=== PATIENT | female | born 1995 | race American Indian/Alaskan Native ===

== ENCOUNTER 2016-10-11 09:28 | Outpatient (CLI) | payer BC ==
--- NOTE | 2016-10-11 11:12 | Ultrasound Report ---
Complete abdominal ultrasound: Images of the liver, spleen, and pancreas are unremarkable. The gallbladder is normal in size and contour. There is a minimal amount of sludge. There is a question of a subcentimeter sized polyp near the neck. The CBD diameter is 1.9 mm. The right renal length is 9.6 cm as is the left and both kidneys are normal echogenically. The transverse diameter of the abdominal aorta is 1.5 cm. Impression: Questionable small gallbladder polyp. No other suspected pathology.
--- NOTE | 2016-10-11 12:55 | Fluoroscopy Report ---
UPPER GI SERIES WITH AIR CONTRAST HISTORY: Abdominal pain, epigastric pain. COMPARISON: None. FINDINGS: A remediation technician film of the abdomen is within normal limits. 38 fluoroscopic images were captured during this exam. Deglutition is normal. There is no evidence for aspiration. The esophagus is normal mucosal pattern and demonstrates normal motility. No evidence for hiatal hernia. One episode of gastroesophageal reflux to the level of clavicles was witnessed during this exam. There is moderate debris within the stomach. The patient had recently eaten. Grossly there is no evidence for gastric mass or ulceration. No abnormal dilatation. The duodenal bulb and into the duodenal sweep are normal. IMPRESSION: Gastroesophageal reflux disease. One episode of reflux to the level of the clavicles was witnessed during this exam. No other abnormality is detected.
== END 2016-10-11 09:29 | disposition home or self-care (01) ==
LOC: US 09:28
PROVIDERS: ATTEND Family Medicine Adult Medicine
DX: K21.9 Gastro-esophageal reflux disease without esophagitis (principal); R10.13 Epigastric pain
CPT/HCPCS: 74247; 76700

== ENCOUNTER 2019-05-26 21:18 | Emergency (ER) | payer BC ==
[2019-05-26 22:28] VITALS: BP 132/94
--- NOTE | 2019-05-27 01:09 | Emergency Department Report ---
- General Chief Complaint: Skin Rash Stated Complaint: RASHES, SWOLLEN FACE AND NECK Time Seen by Provider: 05/27/19 00:52 Source: patient Mode of arrival: Ambulatory Limitations: No Limitations - History of Present Illness Initial Comments: 23-year-old female emergency department complaining of a 2-3 day history of progressively worsening and occasionally pruritic rash to the body of an unknown etiology. Started while she was things. Reports no fever, chills, sweats, chest pain, palpitations. No nausea or vomiting. -: Sudden Severity: mild Consistency: constant Improves With: nothing Worsens With: nothing Associated Symptoms: rash. denies: fever, chills, myalgias, chest pain, shortness of breath, confusion, right sweats, weight loss, epistaxis - Related Data Previous Rx's Medication Instructions Recorded Last Taken Type Nitrofurantoin Crowley/M-Cryst 100 mg PO Q12HR #14 capsule 09/08/13 09/08/13 10:00 Rx [Macrobid] Cyclobenzaprine HCl [Flexeril 5 MG 5 mg PO Q8HR PRN #12 tab 01/24/16 Unknown Rx TAB] Mometasone Furoate [Elocon] 0.5 gm TP TID #45 oint...g. 05/27/19 Unknown Rx hydrOXYzine HCL [Atarax] 25 mg PO Q6HR PRN #20 tablet 05/27/19 Unknown Rx Allergies Allergy/AdvReac Type Severity Reaction Status Date / Time tomato [Tomato] Allergy Rash Verified 09/07/13 23:11 ED Review of Systems ROS: Stated complaint: RASHES, SWOLLEN FACE AND NECK Other details as noted in HPI Comment: All other systems reviewed and negative ED Past Medical Hx - Past Medical History Previous Medical History?: No - Surgical History Past Surgical History?: No - Social History Smoking Status: Never Smoker Substance Use Type: None - Medications Home Medications: Home Medications Medication Instructions Recorded Confirmed Last Taken Type Nitrofurantoin Crowley/M-Cryst 100 mg PO Q12HR #14 capsule 09/08/13 09/08/13 09/08/13 10:00 Rx [Macrobid] Cyclobenzaprine HCl [Flexeril 5 MG 5 mg PO Q8HR PRN #12 tab 01/24/16 Unknown Rx TAB] Mometasone Furoate [Elocon] 0.5 gm TP TID #45 oint...g. 05/27/19 Unknown Rx hydrOXYzine HCL [Atarax] 25 mg PO Q6HR PRN #20 tablet 05/27/19 Unknown Rx ED Physical Exam - General Limitations: No Limitations General appearance: alert, in no apparent distress - Head Head exam: Present: atraumatic, normocephalic - Eye Eye exam: Present: normal appearance, PERRL, EOMI Pupils: Present: normal accommodation - ENT ENT exam: Present: normal exam, mucous membranes moist - Neck Neck exam: Present: normal inspection, full ROM. Absent: tenderness - Respiratory Respiratory exam: Present: normal lung sounds bilaterally. Absent: respiratory distress, wheezes, rales, chest wall tenderness, accessory muscle use - Cardiovascular Cardiovascular Exam: Present: regular rate, normal rhythm, normal heart sounds. Absent: bradycardia, systolic murmur, diastolic murmur, rubs, gallop - GI/Abdominal GI/Abdominal exam: Present: soft, normal bowel sounds. Absent: distended, tenderness, guarding - Extremities Exam Extremities exam: Present: normal inspection - Back Exam Back exam: Present: normal inspection - Neurological Exam Neurological exam: Present: alert, oriented X3 - Psychiatric Psychiatric exam: Present: normal affect, normal mood - Skin Skin exam: Present: warm, dry, normal color, rash, other (rest of the torso, neck irregular oval patch plaque-like rash noted, suggestive of a pityriasis.). Absent: erythema, urticaria ED Course Vital Signs 05/26/19 22:24 Temperature 98.7 F Pulse Rate 98 H Respiratory 18 Rate Blood Pressure 132/94 O2 Sat by Pulse 100 Oximetry Critical care attestation.: If time is entered above; I have spent that time in minutes in the direct care of this critically ill patient, excluding procedure time. ED Disposition Clinical Impression: Pityriasis rosea Disposition: DC-01 TO HOME OR SELFCARE Is pt being admited?: No Does the pt Need Aspirin: No Condition: Stable Instructions: Pityriasis rosea (ED) Prescriptions: hydrOXYzine HCL [Atarax] 25 mg PO Q6HR PRN #20 tablet PRN Reason: Itching Mometasone Furoate [Elocon] 0.5 gm TP TID #45 oint...g. Referrals: PRIMARY CARE, [Primary Care Provider] - 3-5 Days
== END 2019-05-27 01:40 | disposition home or self-care (01) ==
LOC: ED 21:18
DX: L42 Pityriasis rosea (principal)
CPT/HCPCS: 99282